=== PATIENT | male | born 1945 | race Caucasian/White ===

== ENCOUNTER → 2016-08-31 | Outpatient (CLI) | payer MEDICARE ==
[2016-08-31 10:08] LABS: ALT 107 U/L (21-72); AST 78 U/L (17-59); Alkaline Phosphatase 46 U/L (38-126); Anion Gap 8 mmol/L; Blood Urea Nitrogen 18 mg/dL (9-20); Calcium 9.8 mg/dL (8.4-10.2); Carbon Dioxide 29 mmol/L (22-30); Chloride 104 mmol/L (98-107); Cholesterol 168 mg/dL (<200); Creatine Kinase 816 U/L (55-170); Glucose 140 mg/dL (74-99); HDL Cholesterol 47 mg/dL (40-60); Non-African American GFR(MDRD) >60 (>60 ml/min/1.73 sqM); Potassium 4.7 mmol/L (3.5-5.1); Sodium 141 mmol/L (137-145); Total Bilirubin 0.7 mg/dL (0.2-1.3); Total Protein 7.7 g/dL (6.3-8.2); Triglycerides 180 mg/dL (<150)
== END | disposition home or self-care (01) ==
LOC: LABWHC1 09:29
PROVIDERS: ATTEND Internal Medicine Interventional Cardiology
DX: E78.2 Mixed hyperlipidemia (principal)
CPT/HCPCS: 36415; 80053; 80061; 82550

== ENCOUNTER → 2016-10-08 | Outpatient (CLI) | payer MEDICARE ==
[2016-10-08 09:24] LABS: Basophils % (A) 1 %; CH 29.9; CHCM 33.3; Eosinophils # (A) 0.1 k/uL (0-0.7); Eosinophils % (A) 2 %; HCT 45.4 % (39.0-53.0); HDW 2.45; HGB 15.2 gm/dL (13.0-17.5); Luc # (Auto) 0.18; Luc % (Auto) 3; Lymphocytes # (A) 1.6 k/uL (1.0-4.8); Lymphocytes % (A) 26 %; MCH 30.2 pg (25.0-35.0); MCHC 33.5 g/dL (31.0-37.0); MCV 90.2 fL (80.0-100.0); Mean Platelet Volume 7.5; Monocytes # (A) 0.5 k/uL (0-1.0); Monocytes % (A) 9 %; Neutrophils # (A) 3.6 k/uL (1.3-7.7); Neutrophils % (A) 60 %; RBC 5.04 m/uL (4.30-5.90); RDW 14.4 % (11.5-15.5); WBC (Perox) 5.86
[2016-10-08 09:39] LABS: Appearance,Urine Clear (Clear); Bilirubin,Urine Negative (Negative); Glucose,Urine (UA) Negative (Negative); Ketones,Urine Negative (Negative); Leukocyte Esterase,Urine Negative (Negative); Nitrite,Urine Negative (Negative); PH, Urine 6.5 (5.0-8.0); Protein,Urine Negative (Negative); Specific Gravity,Urine 1.019 (1.001-1.035); UA Billing (MACRO vs. MICRO) CHEM; Urobilinogen,Urine <2.0 mg/dL (<2.0)
[2016-10-08 09:47] LABS: ALT 78 U/L (21-72); AST 57 U/L (17-59); Alkaline Phosphatase 51 U/L (38-126); Anion Gap 10 mmol/L; Blood Urea Nitrogen 21 mg/dL (9-20); Calcium 9.5 mg/dL (8.4-10.2); Carbon Dioxide 27 mmol/L (22-30); Chloride 105 mmol/L (98-107); Cholesterol 247 mg/dL (<200); Creatine Kinase 421 U/L (55-170); GGT 33 U/L (15-73); Glucose 95 mg/dL (74-99); HDL Cholesterol 49 mg/dL (40-60); Non-African American GFR(MDRD) >60 (>60 ml/min/1.73 sqM); Potassium 4.6 mmol/L (3.5-5.1); Sodium 142 mmol/L (137-145); Total Bilirubin 0.7 mg/dL (0.2-1.3); Total Protein 7.4 g/dL (6.3-8.2); Triglycerides 225 mg/dL (<150); Uric Acid 7.2 mg/dL (3.5-8.5)
[2016-10-08 14:10] LABS: Hemoglobin A1C 6.9 % (4.2-6.1)
== END | disposition home or self-care (01) ==
LOC: LABWHC1 08:48
PROVIDERS: ATTEND Internal Medicine
DX: E55.9 Vitamin D deficiency, unspecified (principal); I25.10 Atherosclerotic heart disease of native coronary artery without angina pectoris; I10 Essential (primary) hypertension; E11.9 Type 2 diabetes mellitus without complications; E03.9 Hypothyroidism, unspecified; M10.9 Gout, unspecified; E78.2 Mixed hyperlipidemia
CPT/HCPCS: 36415; 80053; 80061; 81003; 82306; 82550; 82977; 83036; 84439; 84443; 84550; 85025

== ENCOUNTER → 2018-02-11 | Outpatient (CLI) | payer MEDICARE ==
[2018-02-11 11:59] LABS: ALT 101 U/L (21-72); AST 48 U/L (17-59); Albumin 4.2 g/dL (3.5-5.0); Alkaline Phosphatase 50 U/L (38-126); Anion Gap 10 mmol/L; Blood Urea Nitrogen 23 mg/dL (9-20); Calcium 9.5 mg/dL (8.4-10.2); Carbon Dioxide 26 mmol/L (22-30); Chloride 105 mmol/L (98-107); Cholesterol 202 mg/dL (<200); Glucose 171 mg/dL (74-99); HDL Cholesterol 43 mg/dL (40-60); LDL Cholesterol,Calculated 87 mg/dL (0-99); Potassium 4.5 mmol/L (3.5-5.1); Sodium 141 mmol/L (137-145); Total Bilirubin 0.4 mg/dL (0.2-1.3); Total Protein 7.1 g/dL (6.3-8.2); Triglycerides 362 mg/dL (<150)
== END ==
LOC: LABWHC1 09:01
PROVIDERS: ATTEND Internal Medicine Interventional Cardiology
DX: E78.2 Mixed hyperlipidemia (principal)
CPT/HCPCS: 36415; 80053; 80061

== ENCOUNTER → 2018-03-01 | Outpatient (CLI) | payer MEDICARE ==
--- NOTE | 2018-03-01 09:17 | US ---
EXAMINATION TYPE: US abdomen complete DATE OF EXAM: 03/01/2018 COMPARISON: NONE CLINICAL HISTORY: K76.0Fatty (change of) liver, not elsewhere classify. EXAM MEASUREMENTS: Liver Length: 12.6 cm Gallbladder Wall: 0.2 cm CBD: 0.5 cm Spleen: 9.9 cm Right Kidney: 12.6 x 5.9 x 6.4 cm Left Kidney: 13.4 x 7.2 x 6.0 cm Pancreas: Obscured by bowel gas Liver: Coarse, heterogeneous echotexture. Measuring upper limits of normal. Hypoechoic area visualiz ed adjacent to the gallbladder measuring 1.5 x 0.6 x 0.8 cm, possible focal fatty sparing Gallbladder: wnl Evidence for sonographic Juares's sign: No CBD: wnl as visualized, distal portion obscured by bowel gas Spleen: wnl Right Kidney: No hydronephrosis. Cystic area visualized lower pole measuring 2.2 x 1.2 x 1.4 cm Left Kidney: No hydronephrosis, no cystic or solid area visualized Upper IVC: wnl Abd Aorta: Atherosclerotic changes visualized. No sonographic evidence for AAA. The liver is coarse. There is no evidence of cholelithiasis. Common bile duct is unremarkable. The visualized portions of the pancreas are homogenous. The spleen is unremarkable. Kidneys are symmet anatoliy and free of hydronephrosis. IMPRESSION: 1. Sonographic findings most commonly related to hepatic steatosis with geographic area near the gall bladder fossa likely representing focal fatty sparing. Finding could be confirmed with enhanced CT ab domen. 2. Simple appearing right renal cyst.
--- NOTE | 2018-03-01 23:10 | XR ---
EXAMINATION TYPE: XR Hip Bilateral Complete DATE OF EXAM: 03/01/2018 COMPARISON: NONE HISTORY: 72-year-old male with bilateral hip TECHNIQUE: 2 views each side FINDINGS: There is mild degenerative spurring and axial joint space narrowing in both hips. No acute fracture, subluxation, or dislocation. IMPRESSION: Mild bilateral hip osteoarthrosis. No acute osseous abnormality seen.
== END | disposition home or self-care (01) ==
LOC: RADUSWWP 08:07
PROVIDERS: ATTEND Internal Medicine
DX: M16.0 Bilateral primary osteoarthritis of hip (principal); N28.1 Cyst of kidney, acquired; K76.0 Fatty (change of) liver, not elsewhere classified
CPT/HCPCS: 73521; 76700

== ENCOUNTER → 2019-02-06 | Outpatient (CLI) | payer MEDICARE | END | disposition home or self-care (01) | LOC: LABWHC1 08:57 | PROVIDERS: ATTEND Internal Medicine Interventional Cardiology | DX: Z53.9 Procedure and treatment not carried out, unspecified reason (principal) ==

== ENCOUNTER → 2019-11-30 | Outpatient (CLI) | payer MEDICARE ==
[2019-11-30 10:19] LABS: Basophils % (A) 1 %; Eosinophils # (A) 0.1 k/uL (0-0.7); Eosinophils % (A) 2 %; HCT 46.7 % (39.0-53.0); HGB 15.2 gm/dL (13.0-17.5); Lymphocytes # (A) 1.6 k/uL (1.0-4.8); Lymphocytes % (A) 28 %; MCH 30.1 pg (25.0-35.0); MCHC 32.5 g/dL (31.0-37.0); MCV 92.7 fL (80.0-100.0); Mean Platelet Volume 8.1; Monocytes # (A) 0.3 k/uL (0-1.0); Monocytes % (A) 6 %; Neutrophils # (A) 3.5 k/uL (1.3-7.7); Neutrophils % (A) 61 %; Platelet Count 170 k/uL (150-450); RBC 5.04 m/uL (4.30-5.90); RDW 13.5 % (11.5-15.5); WBC 5.7 k/uL (3.8-10.6)
[2019-11-30 17:12] LABS: African American GFR (CKD) 103.4 (60.0-200.0); Albumin 4.4 g/dL (3.80-4.90); Anion Gap 9.5 mmol/L (4.00-12.00); BUN/Creat Ratio 21.25 Ratio (12.00-20.00); Calcium 9.6 mg/dL (8.7-10.3); Carbon Dioxide 25.5 mmol/L (21.6-31.8); Chol/HDL Ratio 3.5; Globulin 2.2 g/dL (1.6-3.3); Non-African American GFR(CKD) 89.2 (60.0-200.0); Potassium 4.4 mmol/L (3.5-5.5); Total Bilirubin 0.6 mg/dL (0.2-1.2); Total Protein 6.6 g/dL (6.2-8.2)
[2019-11-30 20:20] LABS: Hemoglobin A1C 9.1 % (4.0-6.0)
== END | disposition home or self-care (01) ==
LOC: LABWHC1 09:06
PROVIDERS: ATTEND Internal Medicine Interventional Cardiology
DX: I10 Essential (primary) hypertension (principal); E78.2 Mixed hyperlipidemia; E11.65 Type 2 diabetes mellitus with hyperglycemia; E03.9 Hypothyroidism, unspecified
CPT/HCPCS: 36415; 80053; 80061; 83036; 84439; 84443; 85025

== ENCOUNTER → 2021-09-19 | Outpatient (CLI) | payer MEDICARE ==
[2021-09-19 16:08] LABS: Basophils # (A) 0.05 X 10*3/uL (0.00-0.10); Basophils % (A) 0.9 %; Eosinophils # (A) 0.07 X 10*3/uL (0.04-0.35); Eosinophils % (A) 1.2 %; HCT 49.2 % (39.6-50.0); HGB 15.9 g/dL (13.0-17.0); Immature Grans, Automated 0.5 %; Lymphocytes # (A) 1.35 X 10*3/uL (0.90-5.00); Lymphocytes % (A) 23.7 %; MCH 30.6 pg (27.0-32.0); MCHC 32.3 g/dL (32.0-37.0); MCV 94.6 fL (80.0-97.0); Mean Platelet Volume 11.1 fL (9.5-12.2); Monocytes # (A) 0.78 X 10*3/uL (0.20-1.00); Monocytes % (A) 13.7 %; NRBC Per 100 WBC 0 /100 WBCS (0.0-0.0); Neutrophils # (A) 3.42 X 10*3/uL (1.80-7.70); Platelet Count 187 X 10*3/uL (140-440); RDW 13.8 % (11.5-14.5)
[2021-09-19 16:27] LABS: Appearance,Urine Clear (Clear); Bilirubin,Urine Negative (Negative); Blood,Urine Negative (Negative); Color,Urine Yellow (Yellow); Ketones,Urine 40 mg/dL (Negative); Nitrite,Urine Negative (Negative); Specific Gravity,Urine 1.032 (1.001-1.030); Urobilinogen,Urine 0.2 (0.2,1.0)
[2021-09-19 16:32] LABS: ALT 36 U/L (10-49); AST 38 U/L (14-35); African American GFR (CKD) 107.7 (60.0-200.0); Albumin 4.5 g/dL (3.8-4.9); Albumin/Globulin Ratio 1.45 (1.60-3.17); Alkaline Phosphatase 48 U/L (41-126); BUN/Creat Ratio 26.29 Ratio (12.00-20.00); Blood Urea Nitrogen 18.4 mg/dL (9.0-27.0); Calcium 9.7 mg/dL (8.7-10.3); Chloride 102 mmol/L (96-109); Chol/HDL Ratio 4.29 Ratio; Globulin 3.1 g/dL (1.6-3.3); Glucose 119 mg/dL (70-110); LDL Cholesterol,Calculated 120.4 mg/dL (0.0-131.0); Magnesium 2.6 mg/dL (1.5-2.4); Potassium 4.4 mmol/L (3.5-5.5); Sodium 138 mmol/L (135-145); Total Protein 7.6 g/dL (6.2-8.2)
[2021-09-19 22:29] LABS: Urine Creatinine 61.1 mg/dL (39.0-259.0)
== END | disposition home or self-care (01) ==
LOC: LABWHC1 08:57
PROVIDERS: ATTEND Nurse Practitioner Adult Health
DX: I10 Essential (primary) hypertension (principal); E78.2 Mixed hyperlipidemia; E11.65 Type 2 diabetes mellitus with hyperglycemia; N40.0 Benign prostatic hyperplasia without lower urinary tract symptoms
CPT/HCPCS: 36415; 80053; 80061; 81003; 82043; 82570; 83036; 83735; 84153; 84439; 84443; 85025

== ENCOUNTER → 2023-02-25 | Outpatient (CLI) | payer MEDICARE ==
[2023-02-25 18:32] LABS: ALT 27 U/L (10-49); AST 23 U/L (14-35); Chol/HDL Ratio 2.51 Ratio; LDL Cholesterol,Calculated 50.2 mg/dL (0.0-131.0)
== END | disposition home or self-care (01) ==
LOC: LABWHC1 10:28
PROVIDERS: ATTEND Internal Medicine Interventional Cardiology
DX: E78.2 Mixed hyperlipidemia (principal)
CPT/HCPCS: 36415; 80061; 84450; 84460

== ENCOUNTER → 2023-10-08 | Outpatient (CLI) | payer MEDICARE ==
[2023-10-08 15:07] LABS: Basophils # (A) 0.06 X 10*3/uL (0.00-0.10); Basophils % (A) 1.4 %; Eosinophils # (A) 0.09 X 10*3/uL (0.04-0.35); Eosinophils % (A) 2.1 %; HCT 49.1 % (39.6-50.0); HGB 15.8 g/dL (13.0-17.0); Lymphocytes # (A) 1.12 X 10*3/uL (0.90-5.00); Lymphocytes % (A) 25.7 %; MCH 30.6 pg (27.0-32.0); MCHC 32.2 g/dL (32.0-37.0); Mean Platelet Volume 11.1 FL (9.5-12.2); Monocytes # (A) 0.71 X 10*3/uL (0.20-1.00); Monocytes % (A) 16.3 %; NRBC Per 100 WBC 0 X 10*3/uL (0.00-0.01); Neutrophils # (A) 2.34 X 10*3/uL (1.80-7.70); Neutrophils % (A) 53.8 %; Platelet Count 156 X 10*3/uL (140-440); RBC 5.17 X 10*6/uL (4.40-5.60); RDW 15.3 % (11.5-14.5); WBC 4.35 X 10*3/uL (4.50-10.00)
[2023-10-08 15:28] LABS: Erythrocyte Sedimentation Rate 9 mm/Hr (0-20)
[2023-10-08 16:29] LABS: ALT 26 U/L (10-49); AST 26 U/L (14-35); Albumin 4.4 g/dL (3.8-4.9); Albumin/Globulin Ratio 1.91 Ratio (1.60-3.17); Alkaline Phosphatase 44 U/L (41-126); BUN/Creat Ratio 23.71 Ratio (12.00-20.00); Blood Urea Nitrogen 16.6 mg/dL (9.0-27.0); Calcium 9.7 mg/dL (8.7-10.3); Chloride 107 mmol/L (96-109); Chol/HDL Ratio 2.32 Ratio; Globulin 2.3 g/dL (1.6-3.3); Glucose 146 mg/dL (70-110); LDL Cholesterol,Calculated 53.4 mg/dL (0.0-131.0); Magnesium 2.3 mg/dL (1.5-2.4); Potassium 4.3 mmol/L (3.5-5.5); Prostate Specific Antigen 0.18 ng/mL (0.000-6.500); Sodium 145 mmol/L (135-145); Total Bilirubin 0.3 mg/dL (0.3-1.2); Total Protein 6.7 g/dL (6.2-8.2)
[2023-10-08 16:41] LABS: Appearance,Urine Clear (Clear); Bacteria,Urine None Seen (None Seen); Bilirubin,Urine Negative (Negative); Blood,Urine Trace (Negative); Color,Urine Yellow (Yellow); Ketones,Urine Negative (Negative); Nitrite,Urine Negative (Negative); Specific Gravity,Urine >1.035 (1.001-1.030)
[2023-10-08 22:53] LABS: Urine Creatinine 67.9 mg/dL (39.0-259.0)
== END | disposition home or self-care (01) ==
LOC: LABWHC1 07:51
PROVIDERS: ATTEND Internal Medicine Interventional Cardiology
DX: I10 Essential (primary) hypertension (principal); E78.2 Mixed hyperlipidemia; G31.84 Mild cognitive impairment of uncertain or unknown etiology; E03.9 Hypothyroidism, unspecified; E11.65 Type 2 diabetes mellitus with hyperglycemia; N40.0 Benign prostatic hyperplasia without lower urinary tract symptoms
CPT/HCPCS: 36415; 80053; 80061; 81001; 82043; 82306; 82570; 83036; 83735; 84153; 84550; 85025; 85652

== ENCOUNTER → 2023-10-27 | Outpatient (CLI) | payer MEDICARE ==
--- NOTE | 2023-10-27 21:57 | US ---
EXAMINATION TYPE: US kidneys/renal and bladder DATE OF EXAM: 10/27/2023 COMPARISON: Abdominal ultrasound 03/01/2013 CLINICAL INDICATION: Male, 78 years old with history of R31.29 OTHER MICROSCOPIC HEMATURIA; microscop ic hematuria, no symptoms per patient, no h/o stones EXAM MEASUREMENTS: Right Kidney: 13.0 x 4.8 x 6.8 cm Left Kidney: 12.6 x 5.2 x 7.1 cm Right Kidney: No hydronephrosis or masses seen Left Kidney: 2.5 x 1.6 x 1.9cm hyperechoic area mid pole may be normal anatomy versus other etiology Bladder: wnl There is no evidence for hydronephrosis at this point in time. No nephrolithiasis is seen. Cortical medullary differentiation is maintained bilaterally. No right renal solid mass. Hyperechoic region wi thin the mid pole of the left kidney. This appears to somewhat blunted with renal sinus fat but is so mewhat more prominent than surrounding fat. Not definitively visualized on prior ultrasound. The urin kiarra bladder is anechoic without filling defect. IMPRESSION: Indeterminate hyperechoic region within the left mid kidney which may represent echogenic sinus fat h owever underlying lesion such as an AML is not excluded. Further evaluation with CT or MR abdomen luis angel al mass protocol is recommended.
== END | disposition home or self-care (01) ==
LOC: RADUSWWP 15:43
PROVIDERS: ATTEND Internal Medicine
DX: R31.29 Other microscopic hematuria (principal)
CPT/HCPCS: 76770

== ENCOUNTER → 2023-11-04 | Outpatient (CLI) | payer MEDICARE ==
--- NOTE | 2023-11-18 12:05 | CT ---
EXAMINATION TYPE: CT abdomen pelvis wo con DATE OF EXAM: 11/04/2023 COMPARISON: Ultrasound 10/27/2023 HISTORY: 78-year-old male [id number], kidney lesion found on ultrasounds CT DLP: 954.5 mGycm. Automated exposure control for dose reduction was used. TECHNIQUE: Contiguous axial scanning of the abdomen and pelvis without IV contrast. Coronal and sagit cordell reconstructions performed. FINDINGS: The heart is normal size without pericardial effusion. However, there are extensive LAD and RCA coron kiarra artery calcifications. Ectatic ascending aorta 3.8 cm. Large caliber visualized right main pulmon kiarra artery up to 3.5 cm suggesting underlying pulmonary artery hypertension. 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 The visualized lower lungs show mild reticular fibrosis and a few scattered calcified pleural plaques . There is some associated basilar bronchiolectasis. No pleural effusion. Liver is borderline enlarged at 17.6 cm. Otherwise, noncontrast appearance of the liver, gallbladder, left adrenal gland, spleen, and pancreas shows no gross abnormality. There is a hypodense cortical lesion lower pole right kidney not appreciated by ultrasound measuring 2.0 cm, likely a cyst. A couple parapelvic cysts in the lower pole left kidney measuring up to 1.4 cm . No nephrolithiasis or hydronephrosis. No obvious suspicious renal mass is identified with particula r attention to the left kidney midpole. However, assessment is limited on this noncontrast CT. Subtle 1.1 cm nodularity right adrenal gland. Mild atherosclerotic calcifications infrarenal abdominal aorta and iliac arteries. Mild atelectatic n arrowing at the origin of the right renal artery. No dilated small bowel, free fluid, or free air. Small 2.4 cm fatty umbilical hernia. Normal appendix. Mild stool burden. Generalized colonic diverticulosis, greatest in the mid sigmoid c olon. No pericolonic inflammatory change seen. However, there is central abdominal Emely mesentery with a few borderline to mildly enlarged lymph no carlie measuring up to 1.3 cm. Bladder urine distended. Prostate gland upper limits of normal at 4.0 cm. Patulous bilateral inguinal canals. No abnormal fluid collection in the pelvis or pelvic lymphadenopathy. Bones: Mild to moderate degenerative change of both hips. There is sclerosis at the left pubic body p robably on a degenerative basis at the pubic symphysis. Straightening of the normal lumbar lordosis. 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 Moderate spondylotic change throughout the vi sualized lumbar spine. IMPRESSION: 1. Suspect a 2.0 cm cortical cyst lower pole right kidney, not seen by ultrasound. A couple benign p arapelvic cysts are present in the lower pole of the left kidney measuring up to 1.4 cm. No obvious s uspicious renal mass is identified with particular attention to the mid left kidney as questioned on ultrasound. However, assessment is limited due to lack of IV contrast. Recommend 6 month follow-up re nal ultrasound to ensure a stable ultrasound appearance. 2. Midabdominal emely mesentery with a few borderline to mildly enlarged lymph nodes measuring up to 1.3 cm. Findings may be seen with mesenteric panniculitis or early lymphoma. 6 month follow-up CT to ensure stability/resolution. 3. Extensive LAD and RCA coronary artery calcifications. Possible underlying pulmonary arterial hype rtension. Query any history of prior asbestos exposure. There is some fibrosis noted in the lower dwight gs. 4. Subtle 1.1 cm right adrenal gland nodularity. This can also be reassessed at the patient's 6 jenn h follow-up. Statistically, representing a small adrenal adenoma. 5. Generalized colonic diverticulosis without acute diverticulitis.
== END | disposition home or self-care (01) ==
LOC: RADCTMAIN 14:22
PROVIDERS: ATTEND Internal Medicine
DX: N28.9 Disorder of kidney and ureter, unspecified (principal); R59.9 Enlarged lymph nodes, unspecified; I25.10 Atherosclerotic heart disease of native coronary artery without angina pectoris; K57.30 Diverticulosis of large intestine without perforation or abscess without bleeding
CPT/HCPCS: 74176

== ENCOUNTER → 2023-12-08 | Outpatient (CLI) | payer MEDICARE ==
[2023-12-08 15:13] LABS: Basophils # (A) 0.04 X 10*3/uL (0.00-0.10); Basophils % (A) 0.7 %; Eosinophils # (A) 0.07 X 10*3/uL (0.04-0.35); Eosinophils % (A) 1.1 %; HCT 48.8 % (39.6-50.0); HGB 15.8 g/dL (13.0-17.0); Lymphocytes # (A) 1.33 X 10*3/uL (0.90-5.00); Lymphocytes % (A) 21.8 %; MCHC 32.4 g/dL (32.0-37.0); MCV 92.6 FL (80.0-97.0); Mean Platelet Volume 10.3 FL (9.5-12.2); Monocytes # (A) 0.69 X 10*3/uL (0.20-1.00); Monocytes % (A) 11.3 %; NRBC Per 100 WBC 0 X 10*3/uL (0.00-0.01); Neutrophils # (A) 3.92 X 10*3/uL (1.80-7.70); Neutrophils % (A) 64.4 %; Platelet Count 190 X 10*3/uL (140-440); RBC 5.27 X 10*6/uL (4.40-5.60); WBC 6.09 X 10*3/uL (4.50-10.00)
[2023-12-08 16:03] LABS: Erythrocyte Sedimentation Rate 12 mm/Hr (0-20)
[2023-12-08 16:05] LABS: ALT 22 U/L (10-49); AST 24 U/L (14-35); Albumin 4.7 g/dL (3.8-4.9); Albumin/Globulin Ratio 1.96 Ratio (1.60-3.17); Alkaline Phosphatase 49 U/L (41-126); BUN/Creat Ratio 28.29 Ratio (12.00-20.00); Blood Urea Nitrogen 19.8 mg/dL (9.0-27.0); C Reactive Protein <0.30 mg/dL (0.00-0.80); Calcium 10.2 mg/dL (8.7-10.3); Carbon Dioxide 23.1 mmol/L (21.6-31.8); Chloride 102 mmol/L (96-109); Globulin 2.4 g/dL (1.6-3.3); Glucose 143 mg/dL (70-110); LDH 153 U/L (120-246); Potassium 4.5 mmol/L (3.5-5.5); Sodium 139 mmol/L (135-145); Total Bilirubin 0.4 mg/dL (0.3-1.2); Total Protein 7.1 g/dL (6.2-8.2)
== END | disposition home or self-care (01) ==
LOC: LABWHC1 11:22
PROVIDERS: ATTEND Internal Medicine
DX: G31.84 Mild cognitive impairment of uncertain or unknown etiology (principal); R59.9 Enlarged lymph nodes, unspecified
CPT/HCPCS: 36415; 80053; 82607; 82746; 83615; 85025; 85652; 86140

== ENCOUNTER → 2024-01-03 | Outpatient (CLI) | payer MEDICARE ==
[2024-01-03 16:13] LABS: Basophils # (A) 0.03 X 10*3/uL (0.00-0.10); Basophils % (A) 0.4 %; Eosinophils # (A) 0.08 X 10*3/uL (0.04-0.35); Eosinophils % (A) 1.2 %; HCT 48.1 % (39.6-50.0); HGB 15.4 g/dL (13.0-17.0); Lymphocytes % (A) 20.8 %; MCH 29.7 pg (27.0-32.0); MCV 92.9 FL (80.0-97.0); Mean Platelet Volume 11.2 FL (9.5-12.2); Monocytes # (A) 0.82 X 10*3/uL (0.20-1.00); Monocytes % (A) 12.2 %; NRBC Per 100 WBC 0 X 10*3/uL (0.00-0.01); Neutrophils # (A) 4.36 X 10*3/uL (1.80-7.70); Platelet Count 188 X 10*3/uL (140-440); RBC 5.18 X 10*6/uL (4.40-5.60); RDW 14.9 % (11.5-14.5); WBC 6.72 X 10*3/uL (4.50-10.00)
[2024-01-03 16:55] LABS: % Iron Saturation 21.25 (15.00-50.00); Chol/HDL Ratio 2.23 Ratio; Creatine Kinase 112 U/L (35-257); Iron 75 UG/DL (65-175); Magnesium 2.4 mg/dL (1.5-2.4); Total Iron Binding Capacity 353 UG/DL (228-460)
[2024-01-03 16:56] LABS: ALT 22 U/L (10-49); AST 21 U/L (14-35); Albumin 4.6 g/dL (3.8-4.9); Albumin/Globulin Ratio 1.84 Ratio (1.60-3.17); Alkaline Phosphatase 43 U/L (41-126); BUN/Creat Ratio 24.12 Ratio (12.00-20.00); Blood Urea Nitrogen 19.3 mg/dL (9.0-27.0); Carbon Dioxide 25.1 mmol/L (21.6-31.8); Chloride 103 mmol/L (96-109); Globulin 2.5 g/dL (1.6-3.3); Glucose 122 mg/dL (70-110); Potassium 4.4 mmol/L (3.5-5.5); Sodium 141 mmol/L (135-145); Total Bilirubin 0.4 mg/dL (0.3-1.2); Total Protein 7.1 g/dL (6.2-8.2); Uric Acid 4.3 mg/dL (3.7-8.7)
[2024-01-03 17:09] LABS: Appearance,Urine Clear (Clear); Bilirubin,Urine Negative (Negative); Blood,Urine Negative (Negative); Color,Urine Yellow (Yellow); Ketones,Urine Trace (Negative); Nitrite,Urine Negative (Negative); Specific Gravity,Urine >1.035 (1.001-1.030)
[2024-01-03 19:52] LABS: Microalbumin Creatinine Ratio <16 mg/g Cr (0-30); Urine Creatinine 75.7 mg/dL (39.0-259.0)
[2024-01-03 23:00] LABS: Follicle Stimulating Hormone 9.6 mIU/mL; Luteinizing Hormone 6.6 mIU/mL
== END | disposition home or self-care (01) ==
LOC: LABWHC1 12:05
PROVIDERS: ATTEND Internal Medicine
DX: I10 Essential (primary) hypertension (principal); E11.65 Type 2 diabetes mellitus with hyperglycemia; E03.9 Hypothyroidism, unspecified; E78.2 Mixed hyperlipidemia; R53.83 Other fatigue
CPT/HCPCS: 36415; 80053; 80061; 81003; 82043; 82550; 82570; 82607; 82728; 82746; 83001; 83002; 83036; 83540; 83550; 83735; 84403; 84443; 84550; 85025

== ENCOUNTER → 2024-10-11 | Outpatient (CLI) | payer MEDICARE ==
--- NOTE | 2024-10-17 05:58 | MR ---
EXAMINATION TYPE: MR brain wo/w cspine wo DATE OF EXAM: 10/11/2024 7:07 PM COMPARISON: None. CLINICAL INDICATION: Male, 79 years old with history of M47.812, G31.84, Mild cognitive impairment, n melvin pain TECHNIQUE: Multiplanar, multiecho imaging on a 3.0 Jeanne magnet is performed through the brain. Stud y is performed within 24 hours of arrival to the hospital.Multiplanar, multiecho imaging on a 3.0 Nica la magnet is performed through the knee. IV Contrast: mL (None, if empty) FINDINGS: The craniovertebral junction is normal. The pituitary is normal. Diffusion-weighted imaging is performed. No abnormal hyperintensity is present to suggest an acute i ntracranial infarct or acute ischemic change. Scattered punctate white matter changes are in the frontal lobes bilaterally. These are nonspecific b ut can be related to microvascular ischemic change. Ventricles and sulci are prominent for the patient age. Following contrast administration, no abnormal enhancement is evident. IMPRESSION: 1. Atrophy with mild punctate white matter ischemic-type changes EXAMINATION TYPE: MR brain wo/w cspine wo DATE OF EXAM: 10/11/2024 7:07 PM COMPARISON: None. CLINICAL INDICATION: Male, 79 years old with history of M47.812, G31.84, Mild cognitive impairment, n melvin pain TECHNIQUE: Multiplanar multiecho imaging on a 3.0 Jeanne magnet is performed through the cervical spin e. IV Contrast: mL (None, if empty) FINDINGS: The craniovertebral junction is normal. Vertebral body alignment is normal. Vertebral nilson dy heights are preserved. Minimal disc space narrowing is present at C4-5 C5-6 C7-T1: No focal disc herniation or significant disc bulge is evident. No spinal canal stenosis or n eural foraminal stenosis is present. C6-7: Small central disc protrusion has mild to moderate anterior thecal sac compression. No cord con tact or spinal canal stenosis present. Neural foramen are patent.. C5-6: No focal disc herniation or significant disc bulge is evident. No spinal canal stenosis is pre sent. There is uncovertebral joint hypertrophy with moderate right and mild left foraminal narrowing C4-5: There is a small central disc protrusion with mild anterior thecal sac compression. No cord con tact is evident. No spinal canal stenosis is present. Neural foramen are patent. C3-4: Broad-based large disc herniation with subligamentous disc extension. This is moderate anterior thecal sac compression. No cord contact. No spinal canal stenosis. Neural foramen are patent. C2-3: Mild disc bulge with mild anterior thecal sac compression. No AP spinal canal stenosis. Neural foramen are patent. IMPRESSION: 1. Large broad-based disc herniation C3-4 with moderate anterior thecal sac compression. No cord cont act or spinal canal stenosis. 2. Mild disc bulge is present C2-3, C4-5 without stenosis or cord contact [facility], , 10/17/2024 5:55 AM
== END | disposition home or self-care (01) ==
LOC: RADMRIMAIN 17:52
PROVIDERS: ATTEND Internal Medicine
DX: M47.812 Spondylosis without myelopathy or radiculopathy, cervical region (principal); G31.84 Mild cognitive impairment of uncertain or unknown etiology; M50.31 Other cervical disc degeneration, high cervical region; M50.321 Other cervical disc degeneration at C4-C5 level
CPT/HCPCS: 70553; 72141; A9585